=== PATIENT | female | born 1985 | race African-American/Black ===

== ENCOUNTER → 2016-09-25 | Outpatient (REF) | payer OTHER ==
[~2016-09-25] MED LIST: DULO1CAP3; JOLETAB; XANA0.25 PO
== END ==
LOC: M SFHCLERA 14:38
PROVIDERS: ATTEND Nurse Practitioner Family
DX: N30.01 Acute cystitis with hematuria (principal)

== ENCOUNTER 2016-11-02 17:43 | Emergency (ER) | payer OTHER ==
[~2016-11-02] VITALS: Ht 157.5 cm; Wt 89.1 kg
[2016-11-02] MEDS ORDERED: XANA0.25 PO (17:59)
[2016-11-02] MEDS ORDERED: DULO1CAP3 (17:59)
[2016-11-02] MEDS ORDERED: JOLETAB (17:59)
[2016-11-02 19:10] VITALS: BP 118/73
== END 2016-11-02 19:52 | disposition home or self-care (01) ==
LOC: M ED 17:43
DX: T75.1XXA Unspecified effects of drowning and nonfatal submersion, initial encounter (principal)

== ENCOUNTER 2017-07-12 03:23 | Emergency (ER) | payer OTHER ==
[2017-07-12] MEDS: dexameTHASONE 20 MG/5 ML VIAL (J1100) IV (04:18)
[2017-07-12] MEDS: MORPHINE 4 MG/ML 1ML VIAL/SYRINGE (J2270) IV (04:18)
[2017-07-12] MEDS: METOCLOPRAMIDE INJ 10MG/2ML VIAL (J2765) IV (04:19)
[2017-07-12] MEDS: NS 500 ML IV (04:19)
== END 2017-07-12 05:14 | disposition home or self-care (01) ==
LOC: M ED 03:23
DX: R51 Headache (principal); F33.9 Major depressive disorder, recurrent, unspecified; Z79.3 Long term (current) use of hormonal contraceptives
CPT/HCPCS: J2270

== ENCOUNTER 2017-07-18 13:48 | Emergency (ER) | payer OTHER ==
[2017-07-18 15:19] LABS: HEMATOCRIT 40.9 % (36.0-47.0); HEMOGLOBIN 13.6 g/dl (12.0-15.5); MEAN CORPUSCULAR HGB CONC 33.3 g/dl (32.0-36.5); MEAN CORPUSCULAR VOLUME 87.2 fl (80.0-96.0); PLATELET COUNT, AUTOMATED 352 10^3/uL (150-450); RED BLOOD COUNT 4.69 10^6/uL (4.00-5.40); RED CELL DISTRIBUTION WIDTH 13.6 % (11.5-14.5)
[2017-07-18 15:22] LABS: ADD MANUAL DIFFER YES; DIFF SLIDE NUMBER 288; POSITIVE DIFF POS FLAG; POSITIVE MORPH POS FLAG
[2017-07-18 15:40] LABS: ATYPICAL LYMPH 5 % (0-5); BASOPHILS 1 % (0-4); LYMPHOCYTES 34 % (16-52); METAMYELOCYTES 1 % (0-0); MONOCYTES 2 % (0-8); NEUTROPHILS 57 % (35-75); PLATELET ESTIMATE NORMAL (NORMAL)
[2017-07-18] MEDS: NS 1,000 ML IV (15:54)
[2017-07-18 17:06] LABS: CONTROL LINE HCG INT CTR LINE PRESENT; HCG, SERUM QUALITATIVE NEGATIVE (NEGATIVE)
[2017-07-18 17:07] LABS: CONTROL LINE MONO RF C INT CTR LINE PRESENT; MONO REFLEX EBV COMP NEGATIVE (NEGATIVE)
[2017-07-18 17:19] LABS: ALBUMIN 2.6 GM/DL (3.2-5.2); ALBUMIN/GLOBULIN RATIO 0.68 (1.00-1.93); ALKALINE PHOSPHATASE 131 U/L (45-117); ALT/SGPT 28 U/L (12-78); ANION GAP 7 MEQ/L (8-16); AST/SGOT 18 U/L (7-37); BILIRUBIN,DIRECT < 0.1 MG/DL (0.0-0.2); BILIRUBIN,TOTAL 0.3 MG/DL (0.2-1.0); BLOOD UREA NITROGEN 19 MG/DL (7-18); C REACTIVE PROTEIN QUANTITATIV 0.62 MG/DL (0.00-0.30); CALCIUM LEVEL 8.4 MG/DL (8.5-10.1); CARBON DIOXIDE LEVEL 29 MEQ/L (21-32); CHLORIDE LEVEL 103 MEQ/L (98-107); GLOMERULAR FILTRATION RATE > 60.0 (>60); GLUCOSE, FASTING 89 MG/DL (70-100); POTASSIUM SERUM 3.7 MEQ/L (3.5-5.1); SODIUM LEVEL 139 MEQ/L (136-145); TOTAL PROTEIN 6.4 GM/DL (6.4-8.2)
[2017-07-18 18:06] LABS: CHLAMYDIA DNA AMPLIFICATION NEGATIVE (NEGATIVE); GC DNA AMPLIFICATION NEGATIVE (NEGATIVE)
[2017-07-21 00:07] LABS: EBV AB TO NUCLEAR ANTIGEN <18.0 U/mL (0.0-17.9); EBV VIRAL CAPSID AG IgG <18.0 U/mL (0.0-17.9)
[2017-07-21 00:07] LABS: EBV VIRAL CAPSID AG IgM <36.0 U/mL (0.0-35.9)
== END 2017-07-18 18:12 | disposition home or self-care (01) ==
LOC: M ED 13:48
DX: N92.0 Excessive and frequent menstruation with regular cycle (principal); J20.9 Acute bronchitis, unspecified; R10.2 Pelvic and perineal pain; F32.9 Major depressive disorder, single episode, unspecified; Z79.899 Other long term (current) drug therapy; Z91.02 Food additives allergy status
CPT/HCPCS: 71046

== ENCOUNTER 2018-03-06 09:50 | Emergency (ER) | payer OTHER ==
[2018-03-06 12:17] LABS: KETONE, URINE AUTO RFX 1+ mg/dL (NEGATIVE); LEUKOCYTE ESTERASE UR AUTO RFX NEGATIVE (NEGATIVE); MUCUS, URINE RFX SMALL (NEGATIVE); NITRITE, URINE AUTO RFX NEGATIVE (NEGATIVE); RBC, URINE AUTO RFX 1 /HPF (0-3); SPECIFIC GRAVITY UR AUTO RFX 1.008 (1.002-1.035); SQUAM EPITHELIAL CELL UR AURFX 0 /HPF (0-6); WBC, URINE AUTO RFX 0 /HPF (0-3)
[2018-03-06] MEDS: NS 1,000 ML IV (12:56)
[2018-03-06] MEDS: METOCLOPRAMIDE INJ 10MG/2ML VIAL (J2765) IV (12:57)
== END 2018-03-06 14:39 | disposition home or self-care (01) ==
LOC: M ED 09:50
DX: O21.9 Vomiting of pregnancy, unspecified (principal); O99.341 Other mental disorders complicating pregnancy, first trimester; F33.9 Major depressive disorder, recurrent, unspecified; Z79.899 Other long term (current) drug therapy; Z91.048 Other nonmedicinal substance allergy status; Z3A.09 9 weeks gestation of pregnancy
CPT/HCPCS: J2765

== ENCOUNTER 2018-03-28 16:01 | Emergency (ER) | payer OTHER ==
[~2018-03-28] VITALS: Ht 157.5 cm; Wt 95.0 kg
[~2018-03-28 16:01] MED LIST changes: +CETI10TA PO; +FLUTISP; +PRED20TA PO; +PROAAER10 INH; +REGL10TA6 PO
[2018-03-28] MEDS ORDERED: diphenhydrAMINE INJ 50MG/ML VIAL (J1200) IV STA (17:42)
[2018-03-28] MEDS ORDERED: METOCLOPRAMIDE INJ 10MG/2ML VIAL (J2765) IV ONE (17:45)
[2018-03-28] MEDS ORDERED: NS 1,000 ML IV ONE (17:45)
[2018-03-28] MEDS ORDERED: ACETAMINOPHEN 325 MG TAB PO ONE (18:45)
[2018-03-28] MEDS ORDERED: MAG SULF 1GM/100ML (MAG RUN) 1 GM in APPROPRIATE DILUENT 1 EA IV ONE (18:45)
[2018-03-28 19:14] VITALS: BP 123/62
[2018-03-28] MEDS ORDERED: FLON1SPR NARES (19:52)
== END 2018-03-28 20:52 | disposition home or self-care (01) ==
LOC: M ED 16:01
DX: R51 Headache (principal); F41.9 Anxiety disorder, unspecified; F32.9 Major depressive disorder, single episode, unspecified; Z79.899 Other long term (current) drug therapy; Z91.02 Food additives allergy status
CPT/HCPCS: 96365; 96375; 99284; J1200; J2765; J3475